=== PATIENT | female | born 1985 | race Caucasian/White ===

== ENCOUNTER 2021-12-30 22:37 | Emergency (ER) | payer OTHER, SELFPAY ==
--- NOTE | ~2021-12-30 | XR_ITS ---
EXAMINATION: XR ANKLE, RIGHT XR FOOT, RIGHT CLINICAL INFORMATION: Pain COMPARISON: None TECHNIQUE: 3 views of the right ankle. 3 views of the right foot. FINDINGS: Osseous alignment throughout the ankle and foot is anatomic. No acute fracture is seen. No significant focal soft tissue abnormality identified. XR/XR foot RT 2V IMPRESSION: No acute findings identified in the right ankle or foot.
--- NOTE | ~2021-12-30 | XR_ITS ---
EXAMINATION: XR ANKLE, RIGHT XR FOOT, RIGHT CLINICAL INFORMATION: Pain COMPARISON: None TECHNIQUE: 3 views of the right ankle. 3 views of the right foot. FINDINGS: Osseous alignment throughout the ankle and foot is anatomic. No acute fracture is seen. No significant focal soft tissue abnormality identified. XR/XR ankle RT 2V IMPRESSION: No acute findings identified in the right ankle or foot.
[2021-12-31 00:36] VITALS: BP 144/86; PULSE 120; RESP 18; TEMP 36.8; O2SAT 96; BMI 22.3
--- NOTE | 2021-12-31 00:50 | ED_ITS ---
HPI - Extremity Injury (Lower) General Chief Complaint: Extremity Injury, Lower Stated Complaint: R ankle injury Time Seen by Provider: 12/31/21 00:33 Source: patient Mode of arrival: wheelchair Limitations: no limitations History of Present Illness HPI Narrative: Patient comes to the emergency room complaining of right-sided foot pain. Patient states that 4 hours prior to arrival, patient was playing basketball, she jumped to take a shot, patient landed on the lateral aspect of her right foot. Patient states that her ankle does not hurt significantly, but the lateral aspect of her right foot is quite painful. Patient unable to bear any weight. Patient has been applying ice, has not taking any medications. Related Data Allergies Allergy/AdvReac Type Severity Reaction Status Date / Time ibuprofen [From Motrin] Allergy Unknown Verified 12/31/21 00:37 Review of Systems Review of Systems: Constitutional : No Weight loss, No Fever, No Chills, No Night Sweats, No Fatigue, No Malaise ENT/Mouth : No Hearing loss, No Ear Pain, No Nasal Congestion, No Sinus Pain, No Hoarseness, No sore throat, No Rhinorrhea, No Swallowing Difficulty Eyes: No Eye Pain, No Swelling, No Redness, No Foreign Body, No Discharge, No Vision Changes Cardiovascular : No Chest Pain, No SOB, No Dyspnea on Exertion, No Orthopnea, No Edema, No Palpitations Respiratory : No Cough, No Sputum, No Wheezing, No Smoke Exposure, No Dyspnea Gastrointestinal : No Nausea, No Vomiting, No Diarrhea, No Constipation, No abdominal Pain, No Hematochezia, No Melena Genitourinary : no irregular bleeding, No Dysuria, No Urinary Frequency, No Hematuria, No Urinary Incontinence, No Urgency, No Flank Pain, No Urinary Flow Changes, No Hesitancy Musculoskeletal : Mild right ankle pain, significant pain in the lateral aspect of the right foot Skin : No Skin Lesions, No rash Neuro : No Weakness, No Numbness, No Paresthesias, No Loss of Consciousness, No Dizziness, No Headache Psych : No Anxiety/Panic, No Depression, No SI/HI/AH/VH, No Social Issues, Heme/Lymph: No Bruising, No Bleeding,No Lymphadenopathy Endocrine : No Polyuria, No Polydipsia, No Temperature Intolerance PMFSH Social History Social History Advance Directives: No Advance Directives Information Provided: Yes Physical Exam Vital Signs: Vital Signs: Last Vital Signs Temp 98.3 F 12/31/21 00:36 Pulse 120 H 12/31/21 00:36 Resp 18 12/31/21 00:36 BP 144/86 H 12/31/21 00:36 Pulse Ox 96 12/31/21 00:36 O2 Del Method 12/31/21 00:36 BMI result Body Mass Index 22.3 Const: Other: Appearance: Alert. Oriented X3. No acute distress. Eyes: Pupils equal, round and reactive to light. ENT: Pharynx normal. Neck: Normal inspection. Neck supple. No lymph nodes noted. No crepitus CVS: Normal heart rate and rhythm. Pulses normal. Normal S1 and S2 Respiratory: No respiratory distress. Breath sounds normal. No Wheezing. No rales Abdomen: Soft and nontender. No rigidity. No distention. Skin: Skin warm and dry. Normal skin color. Normal skin turgor. Extremities: No lower extremity edema. No swelling over the right ankle, no malleolar pain to palpation on the right side. No pain on the medial aspect of the ankle. Patient complaining to pain to palpation over the 4th and 5th metatarsals, no swelling, no ecchymosis Neuro: Oriented X 3. No motor deficit. No sensory deficit. Moving all extremit ies. No slurred speech. CN 2 through 12 grossly intact Psych: calm, cooperative, normal affect Course Course Course Narrative: Patient given 1 dose of p.o. acetaminophen, ankle and foot x-rays pending I discussed the x-rays with the patient, no fracture. Patient is unable to bear weight, patient will be provided with crutches MDM - Extremity Injury (Lower) Imaging Data Ankle and foot x-ray: Radiologist's impression: FINDINGS: Osseous alignment throughout the ankle and foot is anatomic. No acute fracture is seen. No significant focal soft tissue abnormality identified.? XR/XR foot RT 2V IMPRESSION: No acute findings identified in the right ankle or foot.? Discharge Plan Discharge Clinical Impression: Ankle sprain and strain Patient Disposition: Home, Self-Care Instructions: Ankle Sprain (ED) Additional Instructions: Please follow-up with your primary care physician tomorrow. If you have any worsening or new symptoms, please return to the emergency room or call 911
[2021-12-31] MEDS: Acetaminophen 325 MG TABLET 975 MG PO (00:56)
== END 2021-12-31 01:28 | disposition home or self-care (01) ==
PROVIDERS: Emergency Provider Emergency Medicine
DX: S93.401A Sprain of unspecified ligament of right ankle, initial encounter (principal); M25.571 Pain in right ankle and joints of right foot; Y93.67 Activity, basketball; Y92.310 Basketball court as the place of occurrence of the external cause; Y99.9 Unspecified external cause status
CPT/HCPCS: 73600; 73620; 99283